=== PATIENT | male | born 1965 | race Caucasian/White ===

== ENCOUNTER 2020-11-25 13:17 | Outpatient (CLI) | payer OTHER ==
[~2020-11-25] VITALS: Ht 185.4 cm; Wt 92.7 kg
[~2020-11-25 13:17] MED LIST: ALBUTEROL SULFATE 2.5 MG/0.5 ML INH NEB SOLN INH PRN; EPINEPHrine INJ 1 MG/ML 1ML AMP IM PRN; diphenhydrAMINE 50MG/ML VIAL (J1200) IV PRN; methylPREDNISolone 125MG 2ML VIAL IV PRN
[2020-11-25] MEDS ORDERED: NS IV ONE (13:30)
[2020-11-25] MEDS ORDERED: TOCILIZUMAB IV ONE (13:30)
[2020-11-25] MEDS ORDERED: NS 1,000 ML IV SCH (13:30)
[2020-11-25 13:45] VITALS: BP 138/87
[2020-11-25 15:21] VITALS: BP 139/92
== END 2020-11-25 15:30 | disposition home or self-care (01) ==
LOC: M INFU 13:17
PROVIDERS: ATTEND Internal Medicine
DX: M05.79 Rheumatoid arthritis with rheumatoid factor of multiple sites without organ or systems involvement (principal)
CPT/HCPCS: 96365; J3262

== ENCOUNTER 2021-09-27 14:21 | Outpatient (CLI) | payer OTHER ==
[~2021-09-27] VITALS: Ht 185.4 cm; Wt 88.6 kg
[2021-09-27 14:30] VITALS: BP 140/86
[2021-09-27] MEDS ORDERED: NS 1,000 ML IV SCH (14:30)
[2021-09-27] MEDS ORDERED: GOLIMUMAB IV ONE (14:30)
[2021-09-27] MEDS ORDERED: NS IV ONE (14:30)
[2021-09-27 14:53] VITALS: BP 140/86
[2021-09-27] MEDS ORDERED: PLAQ200T4 PO (15:15)
[2021-09-27] MEDS ORDERED: VITAMIN D PO (15:15)
[2021-09-27] MEDS ORDERED: SERT25TA85 PO (15:15)
[2021-09-27 15:55] VITALS: BP 130/82
== END 2021-09-27 15:55 | disposition home or self-care (01) ==
LOC: M INFU 14:21
PROVIDERS: ATTEND Internal Medicine
DX: M05.79 Rheumatoid arthritis with rheumatoid factor of multiple sites without organ or systems involvement (principal)
CPT/HCPCS: 96365; J1602